=== PATIENT | female | born 1930 | race Caucasian/White ===

== ENCOUNTER 2016-12-21 12:01 | Emergency (ER) | payer MEDICARE, OTHER ==
[2016-12-21 12:20] VITALS: BP 155/71; PULSE 62; RESP 19; TEMP 98; O2SAT 97
--- NOTE | 2016-12-21 12:37 | ED PDOC ---
Lower Extremity Pain/Injury Time Seen by Provider: 12/21/16 12:19 Chief Complaint (Nursing): Lower Extremity Problem/Injury Chief Complaint (Provider): Lower Extremity Problem/Injury History Per: Patient History/Exam Limitations: no limitations Onset/Duration Of Symptoms: Days (x14) Additional Complaint(s): Karrie Joseph, 86 year old female presents to the ED on 12/21/16 after experiencing an injury to her left knee upon falling 2 weeks prior to arrival. She states that she was standing on a stool reaching for something and then fell on her left knee. The patient reports pain radiating down to her left foot and up to her left thigh. She has taken Tylenol for the pain, but states feeling increasing pain recently which prompted her to visit the emergency room today. Past Medical History Reviewed: Historical Data, Nursing Documentation Vital Signs: Last Vital Signs Temp 98 F 12/21/16 12:19 Pulse 62 12/21/16 12:19 Resp 19 12/21/16 12:19 BP 155/71 H 12/21/16 12:19 Pulse Ox 97 12/21/16 12:19 - Medical History PMH: Dementia, Diabetes, HTN, Hyperlipidemia Denies: Chronic Kidney Disease - Family History Family History: States: Unknown Family Hx - Home Medications Home Medications: Ambulatory Orders Medication Instructions Recorded Aspirin [Aspirin Chewable] 1 tab PO DAILY 12/21/16 Bisoprolol [Zebeta] 10 mg PO DAILY 12/21/16 Valsartan/Hydrochlorothiazide 1 tab PO DAILY 12/21/16 [Valsartan-Hctz 320-25 mg Tab] - Allergies Allergies/Adverse Reactions: Allergies Allergy/AdvReac Type Severity Reaction Status Date / Time No Known Allergies Allergy Verified 08/14/15 11:37 Review of Systems Musculoskeletal: Positive for: Leg Pain (left leg pain localized to left knee ) Physical Exam - Reviewed Nursing Documentation Reviewed: Yes Vital Signs Reviewed: Yes - Physical Exam Appears: Positive for: Non-toxic, No Acute Distress Head Exam: Positive for: ATRAUMATIC, NORMOCEPHALIC Gastrointestinal/Abdominal: Positive for: Normal Exam, Soft. Negative for: Tenderness Extremity: Positive for: Normal ROM (to left ankle, knee, and hip), Tenderness ( hamstring tenderness), Other (good palpable/pedal pulses). Negative for: Pedal Edema, Calf Tenderness Neurologic/Psych: Positive for: Alert, Oriented (x3) - ECG O2 Sat by Pulse Oximetry: 97 (RA) Pulse Ox Interpretation: Normal - Radiology X-Ray: Interpreted by Me (loss of joint space DJD no fx) Medical Decision Making Medical Decision Making: Initial Impression: Differential diagnosis includes but not limited to muscle contusion and strain. X-ray to rule out fracture considering age. Initial Plan * Knee 3 Views LT [RAD] Stat xray negative for fx, will provide pt with configure 8 DEXTER wrap, advise to elevate ice and take tylenol with PTx and PMD f/u Scribe Attestation: Documented by Pamella Diego, acting as a scribe for Kerrie Sandhu PA-C. Provider Scribe Attestation: All medical record entries made by the Scribe were at my direction and personally dictated by me. I have reviewed the chart and agree that the record accurately reflects my personal performance of the history, physical exam, medical decision making, and the department course for this patient. I have also personally directed, reviewed, and agree with the discharge instructions and disposition. Disposition - Clinical Impression Clinical Impression: Knee injury, Contusion - Patient ED Disposition Is Patient to be Admitted: No - Disposition Disposition: Routine/Home Disposition Time: 13:04 Condition: STABLE Instructions: Knee Pain (ED) Forms: [facility] ED School/Work Excuse Print Language: PERUVIAN
--- NOTE | 2016-12-21 14:41 | RAD ---
PROCEDURE: Left Knee Radiographs. HISTORY: Pain. COMPARISON: None. FINDINGS: BONES: Normal. No fracture. JOINTS: Advanced osteoarthritic changes seen associated with severe narrowing of the medial aspect of the joint space. Marginal osteophyte formation are also seen. JOINT EFFUSION: None. OTHER FINDINGS: None. IMPRESSION: Moderate to severe osteoarthritic changes.
== END 2016-12-21 14:19 | disposition home or self-care (01) ==
LOC: H.ER 12:01
DX: S80.02XA Contusion of left knee, initial encounter (principal); W19.XXXA Unspecified fall, initial encounter; Y92.89 Other specified places as the place of occurrence of the external cause

== ENCOUNTER 2017-10-25 13:25 | Emergency (ER) | payer MEDICARE, OTHER ==
[2017-10-25 13:57] VITALS: TEMP 98.4; O2SAT 98
[2017-10-25 15:18] VITALS: BP 160/78; PULSE 59; RESP 18
--- NOTE | 2017-10-25 15:22 | ED PDOC ---
HPI: Headache Time Seen by Provider: 10/25/17 14:19 Chief Complaint (Nursing): Headache History Per: Patient History/Exam Limitations: no limitations Additional Complaint(s): 87-year-old female presents to the emergency room complaining of right sided neck pain radiating to right ear and her right shoulder, worse with movement, has been present for the past 4 days, taking Tylenol for pain with mild improvement, last dose was 2 hours prior to arrival. Reports no trauma, injury, fever, headache, dizziness, chest pain, shortness of breath, numbness, weakness. Patient has no additional complaints at this time. Past Medical History Vital Signs: Last Vital Signs Temp 98.4 F 10/25/17 13:54 Pulse 59 L 10/25/17 15:17 Resp 18 10/25/17 15:17 BP 160/78 H 10/25/17 15:17 Pulse Ox 98 10/25/17 15:17 - Medical History PMH: Dementia, Diabetes, HTN, Hyperlipidemia Denies: Chronic Kidney Disease - Family History Family History: States: Unknown Family Hx - Home Medications Home Medications: Ambulatory Orders Medication Instructions Recorded Aspirin [Aspirin Chewable] 1 tab PO DAILY 12/21/16 Bisoprolol [Zebeta] 10 mg PO DAILY 12/21/16 Valsartan/Hydrochlorothiazide 1 tab PO DAILY 12/21/16 [Valsartan-Hctz 320-25 mg Tab] Cyclobenzaprine [Cyclobenzaprine 10 mg PO TID PRN #15 tab 10/25/17 HCl] - Allergies Allergies/Adverse Reactions: Allergies Allergy/AdvReac Type Severity Reaction Status Date / Time No Known Allergies Allergy Verified 08/14/15 11:37 Review of Systems Constitutional: Negative for: Fever, Chills, Malaise ENT: Negative for: Nose Discharge, Mouth Pain, Throat Pain Cardiovascular: Negative for: Chest Pain, Palpitations, Edema Respiratory: Negative for: Cough, Shortness of Breath, SOB with Exertion Gastrointestinal: Negative for: Vomiting, Abdominal Pain, Diarrhea Musculoskeletal: Positive for: Neck Pain. Negative for: Back Pain Skin: Negative for: Rash, Lesions Neurological: Negative for: Weakness, Numbness, Dizziness Physical Exam - Physical Exam Comments: GENERAL APPEARANCE: Patient is awake, alert, oriented x 3, in mild painful distress. SKIN: Warm, dry; (-) cyanosis. EYES: (-) conjunctival pallor. ENMT: Mucous membranes moist. NECK: (+) tenderness to palpation to the R side of the neck, (+) pain is worse with ROM, (-) stiffness, (-) lymphadenopathy. CHEST AND RESPIRATORY: (-) rales, (-) rhonchi, (-) wheezes; breath sounds equal bilaterally. HEART AND CARDIOVASCULAR: (-) irregularity; (-) murmur, (-) gallop. ABDOMEN AND GI: Soft; (-) tenderness; (-) palpable mass. BACK: (-) Paravertebral or midline tenderness, (-) spasm, (-) direct bony tenderness, (-) deformity. EXTREMITIES: (-) deformity. Distal pulses good bilaterally. NEURO AND PSYCH: Mental status as above. Intact sensation bilaterally; normal strength in extension of the knees, plantar and dorsiflexion of the toes. - ECG O2 Sat by Pulse Oximetry: 98 Medical Decision Making Medical Decision Making: Impression : neck pain, consider muscle spasm Plan : - Flexeril PO - Reasses VS : P 59 BP 160/78 R18 O2sat 98%RA. On reevaluation, patient is resting comfortably in bed in no acute distress. Patient reports improvement of her neck pain. Patient continues to deny any dizziness, headache, chest pain, numbness, weakness. Patient's neuro exam is unchanged with no focal findings. Advised to follow up with primary care physician in 1-2 days without fail. Advised to continue taking Tylenol and to take medication as prescribed. Return to the emergency room at any time for any new or worsening symptoms. Patient states she fully agrees with and understands discharge instructions. States that she agrees with the plan and disposition. Verbalized and repeated discharge instructions and plan. I have given the patient opportunity to ask any additional questions. Disposition - Clinical Impression Clinical Impression: Neck pain - Patient ED Disposition Is Patient to be Admitted: No Counseled Patient/Family Regarding: Diagnosis, Need For Followup, Rx Given - Disposition Disposition: Routine/Home Disposition Time: 15:15 Condition: IMPROVED Additional Instructions: Thank you for letting us take care of you today. You were treated for neck pain. The emergency medical care you received today was directed at your acute symptoms. Take tylenol as needed for pain. If you were prescribed any medication , please fill it and take as directed. It may take several days for your symptoms to resolve. Return to the Emergency Department if your symptoms worsen , do not improve, or if you have any other problems. Please contact your doctor in 2 days for re-evaluation and follow up. Bring any paperwork you were given at discharge with you along with any medications you are taking to your follow up visit. Our treatment cannot replace ongoing medical care by a primary care provider (PCP) outside of the emergency department. Thank you for allowing the [facility] team to be part of your care today. Prescriptions: Cyclobenzaprine [Cyclobenzaprine HCl] 10 mg PO TID PRN #15 tab PRN Reason: Muscle Spasm Instructions: Neck Pain Forms: [employer] [facility] [employer] (Kazakh) Print Language: GREEK - PA / SILK OPENER / Resident Statement MD/DO has reviewed & agrees with the documentation as recorded.
== END 2017-10-25 15:43 | disposition home or self-care (01) ==
LOC: H.ER 13:25
DX: M54.2 Cervicalgia (principal); E11.9 Type 2 diabetes mellitus without complications; E78.5 Hyperlipidemia, unspecified; F03.90 Unspecified dementia, unspecified severity, without behavioral disturbance, psychotic disturbance, mood disturbance, and anxiety; I10 Essential (primary) hypertension; Z79.82 Long term (current) use of aspirin

== ENCOUNTER 2018-11-18 14:32 | Emergency (ER) | payer MEDICARE, OTHER ==
--- NOTE | 2018-11-18 15:55 | ED PDOC ---
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 Took Gabapentin without relief of pain. Denies CP, SOB. Past Medical History Reviewed: Nursing Documentation, Vital Signs Vital Signs: Last Vital Signs Temp 97.9 F 11/18/18 14:56 Pulse 60 11/18/18 14:56 Resp 20 11/18/18 14:56 BP 148/58 L 11/18/18 14:56 Pulse Ox 98 11/18/18 14:56 Primary Care Provider: Mayi Anderson - Medical History PMH: Dementia, Diabetes, HTN, Hyperlipidemia Denies: Chronic Kidney Disease - Surgical History Other surgeries: Mastectomy - Family History Family History: States: Unknown Family Hx - Living Arrangements Living Arrangements: With Family - Social History Current smoker - smoking cessation education provided: No Alcohol: None - Home Medications Home Medications: Ambulatory Orders Medication Instructions Recorded Aspirin [Aspirin Chewable] 1 tab PO DAILY 12/21/16 Bisoprolol [Zebeta] 10 mg PO DAILY 12/21/16 Valsartan/Hydrochlorothiazide 1 tab PO DAILY 12/21/16 [Valsartan-Hctz 320-25 mg Tab] Cyclobenzaprine [Cyclobenzaprine 10 mg PO TID PRN #15 tab 10/25/17 HCl] Acetaminophen [Tylenol 325mg tab] 2 tab PO Q4H PRN #20 tab 11/18/18 Lidocaine 5% [Lidoderm] 1 ea TD DAILY PRN #10 patch 11/18/18 - Allergies Allergies/Adverse Reactions: Allergies Allergy/AdvReac Type Severity Reaction Status Date / Time No Known Allergies Allergy Verified 11/18/18 14:56 Review of Systems Constitutional: Negative for: Fever, Chills Cardiovascular: Negative for: Chest Pain Respiratory: Negative for: Cough, Shortness of Breath Musculoskeletal: Positive for: Shoulder Pain Skin: Negative for: Rash, Lesions Neurological: Negative for: Weakness, Numbness, Headache, Dizziness Physical Exam - Reviewed Nursing Documentation Reviewed: Yes Vital Signs Reviewed: Yes - Physical Exam Appears: Positive for: Well, No Acute Distress Head Exam: Positive for: ATRAUMATIC, NORMAL INSPECTION Skin: Positive for: Normal Color, Warm, Dry Eye Exam: Positive for: Normal appearance, EOMI, PERRL Neck: Positive for: Normal, Painless ROM, Supple Cardiovascular/Chest: Positive for: Regular Rate, Rhythm. Negative for: Chest Non Tender (TTP R anterior chest wall) Respiratory: Positive for: Normal Breath Sounds Extremity: Positive for: Tenderness (R shoulder). Negative for: Normal ROM, Deformity, Swelling - ECG O2 Sat by Pulse Oximetry: 98 Medical Decision Making Medical Decision Makin yo female with R shoulder injury s/p fall. - XR R shoulder - XR R ribs Accession No. : [id number] Patient Name / ID : GEOFF HOOK / [id number] Exam Date : 11/18/2018 16:16:42 ( Approved ) Study Comment : Sex / Age : F / 88Y Creator : maryam correia Dictator : Abdulaziz Lozada MD [employer] Cook : City Dispatch Supervisor : Abdulaziz Lozada MD Approver2 : Report Date : 11/18/2018 16:46:29 My Comment : Date of service: 11/18/2018 PROCEDURE: Radiographs of the Right Shoulder HISTORY: Fall COMPARISON: No prior. TECHNIQUE: 3 views obtained. FINDINGS: BONES: Normal. No fracture. JOINTS: Preserved glenohumeral relationship, acromioclavicular degenerative change: Mild. SOFT TISSUES: Normal. OTHER FINDINGS: Calcific tendinosis. IMPRESSION: No significant or acute findings to account for/ related to the clinical presentation. Additional benign and/or incidental findings described above. Accession No. : [id number] Patient Name / ID : GEOFF HOOK / [id number] Exam Date : 11/18/2018 16:22:27 ( Approved ) Study Comment : Sex / Age : F / 88Y Creator : maryam correia Dictator : Abdulaziz Lozada MD Fast Food Cook : City Dispatch Supervisor : Abdulaziz Lozada MD Approver2 : Report Date : 11/18/2018 16:46:28 My Comment : Date of service: 11/18/2018 PROCEDURE: Radiographs of the Chest and Right Ribs. HISTORY: Fall COMPARISON: 12/05/2015 single-view chest TECHNIQUE: Frontal radiograph of the chest and multiple oblique radiographs of the right ribs were obtained. 4 views obtained. FINDINGS: RIGHT RIBS: No fracture or focal lesion visualized. LUNGS: Clear. PLEURA: No pneumothorax or pleural fluid. CARDIOVASCULAR: Normal cardiac size. No pulmonary vascular congestion. Atherosclerotic calcifications identified primarily aortic arch. OTHER FINDINGS: None. IMPRESSION: Unremarkable radiographs of the chest and right ribs. No right rib fracture. Disposition - Clinical Impression Clinical Impression: Shoulder injury, Chest wall injury - Patient ED Disposition Is Patient to be Admitted: No - Disposition Disposition: Routine/Home Disposition Time: 17:26 Condition: STABLE Additional Instructions: FOLLOW-UP WITH PMD WITHIN 2 DAYS FOR REEVALUATION. Prescriptions: Acetaminophen [Tylenol 325mg tab] 2 tab PO Q4H PRN #20 tab PRN Reason: Fever >100.4 F Lidocaine 5% [Lidoderm] 1 ea TD DAILY PRN #10 patch PRN Reason: Pain, Moderate (4-7) Instructions: Shoulder Pain (DC), Contusion (DC) Forms: [employer] (Dutch) Print Language: ITALIAN
--- NOTE | 2018-11-18 17:00 | RAD ---
Date of service: 11/18/2018 PROCEDURE: Radiographs of the Right Shoulder HISTORY: Fall COMPARISON: No prior. TECHNIQUE: 3 views obtained. FINDINGS: BONES: Normal. No fracture. JOINTS: Preserved glenohumeral relationship, acromioclavicular degenerative change: Mild. SOFT TISSUES: Normal. OTHER FINDINGS: Calcific tendinosis. IMPRESSION: No significant or acute findings to account for/ related to the clinical presentation. Additional benign and/or incidental findings described above.
--- NOTE | 2018-11-18 17:01 | RAD ---
Date of service: 11/18/2018 PROCEDURE: Radiographs of the Chest and Right Ribs. HISTORY: Fall COMPARISON: 12/05/2015 single-view chest TECHNIQUE: Frontal radiograph of the chest and multiple oblique radiographs of the right ribs were obtained. 4 views obtained. FINDINGS: RIGHT RIBS: No fracture or focal lesion visualized. LUNGS: Clear. PLEURA: No pneumothorax or pleural fluid. CARDIOVASCULAR: Normal cardiac size. No pulmonary vascular congestion. Atherosclerotic calcifications identified primarily aortic arch. OTHER FINDINGS: None. IMPRESSION: Unremarkable radiographs of the chest and right ribs. No right rib fracture.
[2018-11-18] MEDS ORDERED: Lidocaine 5% Patch TD STA (17:27)
[2018-11-18] MEDS ORDERED: Lidocaine 5% Patch TD ONE (17:57)
[2018-11-18 18:09] VITALS: BP 156/63; PULSE 54; RESP 18; TEMP 97.5; O2SAT 97
== END 2018-11-18 18:15 | disposition home or self-care (01) ==
LOC: H.ER 14:32
DX: S49.91XA Unspecified injury of right shoulder and upper arm, initial encounter (principal); S29.9XXA Unspecified injury of thorax, initial encounter; W01.0XXA Fall on same level from slipping, tripping and stumbling without subsequent striking against object, initial encounter; Y93.E9 Activity, other interior property and clothing maintenance; E11.9 Type 2 diabetes mellitus without complications; F03.90 Unspecified dementia, unspecified severity, without behavioral disturbance, psychotic disturbance, mood disturbance, and anxiety; I10 Essential (primary) hypertension; Z79.82 Long term (current) use of aspirin; E78.5 Hyperlipidemia, unspecified